=== PATIENT | female | born 1990 | race Caucasian/White ===

== ENCOUNTER 2016-08-17 18:53 | Emergency (ER) | payer OTHER ==
[~2016-08-17] VITALS: Ht 172.7 cm; Wt 66.0 kg
--- NOTE | 2016-08-17 19:50 | PD ---
HPI Chief Complaint: Psychiatric Symptoms Time Seen by Provider: 19:47 Travel History International Travel<30 days: No Contact w/Intl Traveler<30days: No Traveled to known affect area: No History of Present Illness HPI 25-year-old female presents to the emergency department transferred from [facility] under Parker act. Apparently she was admitted to [facility] for suicidal ideation as well as possible seizure. She was transferred here today. The patient denies any suicidal or homicidal ideation. She does report history of bipolar disorder states she takes her medications as prescribed. She states that she was refusing Depakote at [facility] because they were trying to put her on that and she has been on it before. The patient does has superficial abrasions to her left anterior forearm. She states she cut herself approximately 2 months ago. The patient denies any alcohol, tobacco, drug use. She denies any medical complaints at this time. PFSH Past Medical History Bipolar Disorder: Yes Anxiety: Yes Depression: Yes Diabetes: No Patient Takes Glucophage: No Diminished Hearing: No Seizures: Yes Tetanus Vaccination: Unknown ?: Not Social History Alcohol Use: No Tobacco Use: No Substance Use: Yes (PRESCRIPTION MEDICATIONS) Review of Systems Except as stated in HPI: all other systems reviewed are Neg Physical Exam Narrative GENERAL: Well-nourished, well-developed female patient, ambulatory. Afebrile. SKIN: Focused skin assessment warm/dry. Patient has superficial lacerations to the left anterior forearm. HEAD: Normocephalic. Atraumatic. EYES: No scleral icterus. No injection or drainage. NECK: Supple, trachea midline. No JVD or lymphadenopathy. CARDIOVASCULAR: Regular rate and rhythm without murmurs, gallops, or rubs. RESPIRATORY: Breath sounds equal bilaterally. No accessory muscle use. Lungs sounds are clear to auscultation GASTROINTESTINAL: Abdomen soft, non-tender, nondistended. MUSCULOSKELETAL: No cyanosis, or edema. PSYCHIATRIC: No delusional thought processes. No hallucinations. Data Data Last Documented VS Vital Signs Date Time Temp Pulse Resp B/P Pulse Ox O2 Delivery O2 Flow Rate FiO2 08/17/16 19:52 98.1 91 20 131/84 99 MDM Medical Decision Making Medical Screen Exam Complete: Yes Emergency Medical Condition: Yes Medical Record Reviewed: Yes Differential Diagnosis Bipolar disorder versus depression versus anxiety Narrative Course 25-year-old female presents to the emergency department from [facility] under Parker act. She is previously medically cleared at the hospital ordered study. I reviewed the papers from [facility]. Patient denies any suicidal or homicidal ideation. She denies any medical complaints. Patient is medically cleared for psychiatric screening and disposition. Mental health screening discussed with the patient. Psychiatric screen ordered. Diagnosis Primary Impression: Bipolar disorder Additional Instructions: Patient is medically cleared for psychiatric screening and disposition. Condition: Stable Jodee Amin Aug 17, 2016 19:50
[2016-08-17 19:52] VITALS: BP 131/84; PULSE 91; RESP 20; TEMP 98.1; O2SAT 99
[2016-08-17 22:04] VITALS: BP 116/71; PULSE 73; RESP 16; O2SAT 99
[2016-08-17] MEDS ORDERED: REME15TA PO (22:12)
[2016-08-17] MEDS ORDERED: ADDE10 PO (22:12)
[2016-08-17] MEDS ORDERED: HYDR-3583 PO (22:12)
[2016-08-17] MEDS ORDERED: ABIL5TAB6 PO (22:12)
[2016-08-17] MEDS ORDERED: ALPR0.5T3 PO (22:12)
[2016-08-18 02:02] VITALS: BP 127/72; PULSE 74; RESP 18
[2016-08-18 06:32] VITALS: BP 120/83; PULSE 92; RESP 18
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
== END 2016-08-18 09:36 | disposition home or self-care (01) ==
LOC: NEPJ 18:53
DX: F44.7 Conversion disorder with mixed symptom presentation (principal); F43.21 Adjustment disorder with depressed mood; F60.3 Borderline personality disorder; Z56.0 Unemployment, unspecified; F31.9 Bipolar disorder, unspecified
CPT/HCPCS: 99284